=== PATIENT | male | born 1990 | race Caucasian/White ===

== ENCOUNTER 2016-08-16 19:41 | Emergency (ER) | payer SELFPAY ==
[2016-08-16 19:53] VITALS: BP 161/93; BMI 25.8
[2016-08-16] MEDS ORDERED: TORADOL 60 MG VIAL IM ONE (20:40)
[2016-08-16] MEDS ORDERED: TORADOL 60 MG VIAL ONE (20:42)
--- NOTE | 2016-08-16 20:44 | DR.GENAD ---
HPI - PCP Primary Care Physician: nfd - Complaint/Symptoms Chief Complaint Doctors Comments: Patient states he fell off a ladder while he was helping his grand father fix a roof. states he got long term down the ladder and fell landing on the concrete from 3-4 feet with pain right occipital head; right shoulder and neck. States the pain is 7 of 10. He denies LOC, numbness or tingling in hands or feet. States his neck hurts when he moves it and he has right shoulder pain. He has no local doctor. He has been ambulating since the accident and has no problems with his gait. He denies blurred vision, nausea or vomiting. Chief Complaint:: pt says he fell off ladder approx 3 hrs ago-c/o pain to rt shoulder-ambulates without difficulty-no noticeable injury-moves rt shoulder - Nurses notes reviewed Nurses Notes Review: Yes - Source History Provided: Patient - Mode of Arrival Mode of Arrival: Ambulatory - Timing Onset of Chief Complaint: 08/16/16 Came on: Suddenly - Duration Duration: Constant How lon Duration: Hours - Location Location: right shoulder, right occipital scalp - Severity Severity: Moderate - Modifying Factors Worsens:: movement Improves:: nothing PMH - PMH Past Medical History: No Past Surgical History: No - Family History History of Family Medical Conditions: No - Social History Does patient currently use any type of tobacco product: Yes Have you used tobacco products in the last 12 months: Yes Type of Tobacco Use: Cigarettes Does any household member use tobacco: Yes Alcohol Use: None Do you use any recreational Drugs:: No Lives With: Family Lives Where: Home - infectious screening In the last 2 months have you had wt loss of >10#?: NO Have you had fever, night sweats or hemotysis?: No Have you traveled outside the country in the last 6 months?: No Isolation: Standard ROS - Review of Systems Constitutional: No Symptoms Reported. negative: See HPI, Chills, Diaphoresis, Fever, Malaise, Weakness, Irritable, Fatigue, Loss of Appetite, Other Eyes: No Symptoms Reported. negative: See HPI, Eye Pain, Blurred Vision, Tearing, Discharge, Photophobia, Diplopia, Other ENTM: No Symptoms Reported, Nose Discharge (right nostril with purulent nasal secretion), Nose Congestion Respiratoy: No Symptoms Reported. negative: See HPI, Productive Cough, Non- Productive Cough, Moist Cough, Dry Cough, Hacking Cough, Barking Cough, Brassy Cough, Orthopnea, Short of Breath, Stridor, Wheezing, Hemoptysis, Other Cardiovascular: No Symptoms Reported. negative: See HPI, Chest Pain, Edema, Palpitations, Syncope, Cyanosis, Skin Mottling, Other Gastrointestinal/Abdominal: No Symptoms Reported. negative: See HPI, Abdominal Pain, Constipation, Diarrhea, Nausea, Vomiting, Food Intolerance, Other Genitourinary: No Symptoms Reported. negative: See HPI, Discharge, Dysuria, Frequency, Hematuria, Pain, Bleeding, Other Neurological: No Symptoms Reported. negative: See HPI, Anxiety, Depressed, Emotional Problems, Headache, Numbness, Paresthesia, Pre-existing Deficit, Seizure, Tingling, Tremors, Weakness, Dizziness, Problems Walking, Speech Problem, Other Musculoskeletal: No Symptoms Reported, Right, Back (right scapular with abrasion , bruising), Shoulder Integumentary: Bruises (right back with large area erythema, bruising, abrasion , 12 cm) Hematologic/Lymphatic: No Symptoms Reported. negative: See HPI, Anemia, Blood Clots, Easy Bleeding, Easy Bruising, Swollen Glands, Lymphadenopathy, Other Endocrine: No Symptoms Reported. negative: See HPI, Excessive Sweating, Flushing, Intolerance to Cold, Intolerance to Heat, Increased Hunger, Increased Thirst, Increased Urine, Unexplained Weight Gain, Unexplained Weight Loss, Failure to Thrive, Decreased Appetite, Other Psychiatric: No Symptoms Reported. negative: See HPI, Anxiety, Depression, Hallucinations, Excessive crying, Suicidal, Other PE - Vital Signs Vitals: Temperature 98.5 F Pulse Rate 99 Respiratory Rate 16 Blood Pressure 161/93 O2 Sat by Pulse Oximetry 99 - General Limitations: No Limitations General Appearance: Alert, In Distress (moderate) - Head Head Exam: Normal Inspection, Normocephalic. negative: Atraumatic (right occipital with two area erythema, slight swelling 3-4 cm area;no laceration or active bleeding) - Eyes Eye exam: Normal Appearance, PERRL, EOMI. negative: Scleral Icterus, Conjunctival Injection, Nystagmus, Miosis, Mydrasis, Periorbital Swelling, Periorbital Tenderness, Other - ENT ENT Exam: Normal Exam, Normal Oropharynx, Normal External Ear Exam, Mucous Membranes Moist, TM's Normal Bilaterally External Ear Exam: Normal External Inspection TM/Canal Exam: Bilateral Normal Nose Exam: Normal Nose Exam. negative: Sinus Tenderness (right nasal congestion ; purulent nasal discharge), Nasal Deviation Mouth Exam: Normal Inspection. negative: Drooling, Trismus, Lip Swelling, Tongue Elevation, Tongue Swelling, Laceration, Other Throat Exam: Normal Inspection. negative: Tonsillar Erythema, Tonsillomegaly, Tonsillar Exudate, R Peritonsillar Mass, L Peritonsillar Mass, Muffled Voice, Other - Neck Neck Exam: Normal Inspection, Full ROM, Trachea Midline. negative: Tenderness, Meningismus, Lymphadenopathy, Thyromegaly, Other - Chest Chest Inspection: Normal Inspection, Symmetric Chest Wall Rise - Respiratory Respiratory Exam: Normal Lung Sounds Bilat Respiratory Exam: Bilateral Clear to Auscultation - Cardiovascular Cardiovascular Exam: Regular Rate, Normal Rhythm, Normal Heart Sounds. negative : Bradycardia, Tachycardia, Irregular Rhythm, Systolic Murmur, Diastolic Murmur , Rubs, Gallop, Clicks, JVD, +S1, +S2, +S3, +S4, Other - Abdominal Exam Abdominal Exam: Normal Inspection, Normal Bowel Sounds, Soft. negative: Distention, Tenderness, Guarding, Rebound, Rigidity, Dimnished Bowel Sounds, Hyperactive Bowel Sounds, Hypoactive Bowel Sounds, Organomegaly, Trauma, Incision, Ascites, Mass, Bruit, Pulsatile Mass, Hernia, Other Abdominal Tenderness: negative: RUQ, RLQ, LUQ, LLQ, Epigastrium, Suprapubic, Diffuse, Mild, Moderate, Severe, Other - Extremities Extremities Exam: Normal Inspection, Full ROM, Tenderness (right shoulder and scapular area with abrasion; tenderness on palpation AC joint), Normal Capillary Refill. negative: Edema, Joint Swelling, Calf Tenderness, Other - Back Back Exam: Normal Inspection, Full ROM, Tenderness (right scapular with abrasion ), Muscle Spasm - Neurologic Neurological Exam: Alert, Oriented X3, CN II-XII Intact, Reflexes Normal. negative: Normal Gait (gait not tested) - Psychiatric Psychiatric Exam: Normal Affect, Normal Mood. negative: Depressed, Agitated, Anxious, Flat Affect, Manic, Homicidal Ideation, Suicidal Ideation, Other - Skin Skin Exam: Warm, Dry, Intact, Normal Color ROR - Labs Reviewed Laboratory Results Reviewed?: Yes (All x-ray results reviewed and discussed with patient) - XRAY XRAY Interpreted by: Radiologist (CT head: No acute intracranial process identified. Ct cervical spine: Negative) XRAY Findings: CXR: No acut cardiopulmonary disease. Right shoulder: Negative exam - Diagnosis Discharge Problem: Muscle strain Fall from ladder Qualifiers: Encounter type: initial encounter Qualified Code(s): W11.XXXA - Fall on and from ladder, initial encounter Contusion of head Qualifiers: Encounter type: initial encounter Contusion of head detail: scalp Qualified Code(s): S00.03XA - Contusion of scalp, initial encounter Contusion of left shoulder Qualifiers: Encounter type: initial encounter Qualified Code(s): S40.012A - Contusion of left shoulder, initial encounter - Discharge Plan Disposition: HOME, SELF-CARE Condition: Stable Prescriptions: Cyclobenzaprine HCl [FLEXERIL 10 MG *] 10 mg PO BID PRN #14 tab PRN Reason: Ibuprofen [MOTRIN TAB 800 MG *] 800 mg PO BID PRN #40 tab PRN Reason: Pain/Inflammation - Follow ups/Referrals Follow ups/Referrals: NFD,None [Primary Care Provider] - 3 days SUBHASH ESCOBAR [CONSULTING PHYSICIAN] - 3 days - Instructions Instructions: Fall Prevention in the Home, Facial or Scalp Contusion, Easy-to- Read, Contusion, Muscle Strain, [id number]
--- NOTE | 2016-08-16 21:37 | CT ---
History: Fell off a ladder with right shoulder pain Study: Multi planner internship CT cervical spine without contrast Findings: There is normal alignment without disc space narrowing or fracture or osteophyte formation or anomaly. The facet 's and spinous processes are intact. Impression: Negative Reported By:
--- NOTE | 2016-08-16 21:38 | CT ---
HISTORY: Fell off a ladder and headache Study: CT brain without contrast Comparison: None Technique: Multiple axial images of the brain were obtained from the skull base to the vertex without administr ation of IV contrast. Sagittal and coronal reformations were provided. Findings: No acute intraparenchymal hemorrhage or mass can be identified. No extra-axial fluid collections ar e seen. No alteration in the attenuation of the brain parenchyma can be identified to suggest acute or subacute ischemic change. The ventricular system is symmetric and nondilated. The extracranial structures are grossly unremarkable. IMPRESSION: 1. No acute intracranial process can be identified. Reported By:
--- NOTE | 2016-08-16 21:41 | RAD ---
HISTORY: Fall off a ladder with shoulder pain Study: PA upright chest Comparison: None Findings: The trachea is midline. The cardiac silhouette is unremarkable. The lungs are clear without focal infiltrate or effusion. The bony thorax is unremarkable. IMPRESSION: 1. No acute cardiopulmonary disease. Reported By:
--- NOTE | 2016-08-16 21:42 | RAD ---
HISTORY: Right shoulder pain after falling off a ladder Study: Three views right shoulder Comparison: None Findings: The appearance of the clavicle and AC joint are unremarkable. The glenohumeral articulation is norm al in its appearance. No acute cortical disruption or dislocation can be identified. The visualize d portions of the scapula are unremarkable. In addition, the visualized portions of the chest appea r unremarkable. IMPRESSION: 1. Negative exam. Reported By:
== END 2016-08-16 22:13 | disposition home or self-care (01) ==
LOC: ER 19:58
DX: S00.03XA Contusion of scalp, initial encounter (principal); S40.012A Contusion of left shoulder, initial encounter; W11.XXXA Fall on and from ladder, initial encounter; Y92.9 Unspecified place or not applicable
CPT/HCPCS: 70450; 71010; 72125; 73030; 96372; 99283; J1885

== ENCOUNTER 2016-08-25 12:02 | Emergency (ER) | payer SELFPAY ==
[2016-08-25 12:16] VITALS: BP 137/78; BMI 27.3
[2016-08-25] MEDS ORDERED: FUL-GLO STRIP ONE (12:45)
[2016-08-25] MEDS ORDERED: TETRACAINE HCL ONE (12:45)
--- NOTE | 2016-08-25 12:51 | DR.GENAD ---
HPI - PCP Primary Care Physician: nfd - Complaint/Symptoms Chief Complaint Doctors Comments: History as stated. Chief Complaint:: patient stated he was grinding with a small hand grander yesterday and he thinks something is in his right eye. - Source History Provided: Patient - Mode of Arrival Mode of Arrival: Ambulatory - Timing Onset of Chief Complaint: 08/24/16 PMH - PMH Past Medical History: No Past Surgical History: Yes Surgical History: Ortho Surgery - Family History History of Family Medical Conditions: No - Social History Does patient currently use any type of tobacco product: Yes Have you used tobacco products in the last 12 months: Yes Type of Tobacco Use: Cigarettes How many years tobacco product used: 2 Does any household member use tobacco: No Alcohol Use: None Do you use any recreational Drugs:: No Lives With: Family Lives Where: Home - infectious screening In the last 2 months have you had wt loss of >10#?: NO Have you had fever, night sweats or hemotysis?: No Have you traveled outside the country in the last 6 months?: No Isolation: Standard ROS - Review of Systems Eyes: Tearing ENTM: No Symptoms Reported Respiratoy: No Symptoms Reported Cardiovascular: No Symptoms Reported Gastrointestinal/Abdominal: No Symptoms Reported Genitourinary: No Symptoms Reported Neurological: No Symptoms Reported Musculoskeletal: No Symptoms Reported Integumentary: No Symptoms Reported Hematologic/Lymphatic: No Symptoms Reported Endocrine: No Symptoms Reported Psychiatric: No Symptoms Reported All Other Systems: Reviewed and Negative PE - Vital Signs Vitals: Temperature 98.7 F Pulse Rate 80 Respiratory Rate 16 Blood Pressure 137/78 O2 Sat by Pulse Oximetry 100 - General Limitations: No Limitations General Appearance: Alert, In No Apparent Distress - Head Head Exam: Normal Inspection, Atraumatic - Eyes Eye exam: Normal Appearance, PERRL, EOMI, Other (fluorocein drops, corneal abrasion at 5 oclock right eye) - ENT ENT Exam: Normal Exam External Ear Exam: Normal External Inspection TM/Canal Exam: Bilateral Normal Nose Exam: Normal Nose Exam Mouth Exam: Normal Inspection Throat Exam: Normal Inspection - Neck Neck Exam: Normal Inspection - Chest Chest Inspection: Normal Inspection - Respiratory Respiratory Exam: Normal Lung Sounds Bilat Respiratory Exam: Bilateral Clear to Auscultation - Cardiovascular Cardiovascular Exam: Regular Rate - Abdominal Exam Abdominal Exam: Normal Inspection Abdominal Tenderness: negative: RUQ, RLQ, LUQ, LLQ, Epigastrium, Suprapubic, Diffuse, Mild, Moderate, Severe, Other - Extremities Extremities Exam: Normal Inspection - Back Back Exam: Normal Inspection - Neurologic Neurological Exam: Alert, Oriented X3, CN II-XII Intact - Psychiatric Psychiatric Exam: Normal Affect, Normal Mood - Skin Skin Exam: Warm, Dry, Intact ROR - Labs Reviewed Laboratory Results Reviewed?: Yes - Diagnosis Discharge Problem: Cornea abrasion Qualifiers: Encounter type: initial encounter Laterality: right Qualified Code(s): S05.01XA - Injury of conjunctiva and corneal abrasion without foreign body, right eye, initial encounter - Discharge Plan Condition: Stable - Follow ups/Referrals Follow ups/Referrals: NFD,None [Primary Care Provider] - 3 days - Instructions
[2016-08-25] MEDS ORDERED: TETRACAINE HCL AFFEYE ONE (12:53)
[2016-08-25] MEDS ORDERED: FUL-GLO STRIP RIGHTEYE ONE (12:53)
== END 2016-08-25 13:07 | disposition home or self-care (01) ==
LOC: ER 12:21
DX: S05.01XA Injury of conjunctiva and corneal abrasion without foreign body, right eye, initial encounter (principal); Y33.XXXA Other specified events, undetermined intent, initial encounter; Y92.9 Unspecified place or not applicable
CPT/HCPCS: 99282

== ENCOUNTER 2016-10-10 20:26 | Emergency (ER) | payer SELFPAY ==
[2016-10-10 20:33] VITALS: BP 144/80; BMI 26.6
--- NOTE | 2016-10-10 22:16 | DR.GENAD ---
HPI - PCP Primary Care Physician: nfraad - HPI Comment HPI Comment: Pt presented to ED tonight c/o nausea and vomiting upon awakening earlier this morning. He has since eaten a meal from [facility] w/o difficulty. He wishes to be checked out. - Complaint/Symptoms Chief Complaint Doctors Comments: nausea and vomiting this morning Chief Complaint:: nausea/vomiting - Nurses notes reviewed Nurses Notes Review: Yes - Source History Provided: Patient - Mode of Arrival Mode of Arrival: Ambulatory - Timing Onset of Chief Complaint: 10/10/16 Came on: Suddenly, On Awakening (one episode) - Severity Severity: Mild - Modifying Factors Worsens:: none Improves:: time PMH - PMH Past Medical History: No Past Surgical History: Yes Surgical History: Ortho Surgery Past Surgical History Comment: pins in left leg - Family History History of Family Medical Conditions: Yes Family Medical History: Diabetes Mellitus, [place], Coronary Artery Disease, Heart Failure, Hypertension - Social History Does patient currently use any type of tobacco product: Yes Have you used tobacco products in the last 12 months: Yes Type of Tobacco Use: Cigarettes Does any household member use tobacco: No Alcohol Use: None Do you use any recreational Drugs:: No Lives With: Family Lives Where: Home - infectious screening In the last 2 months have you had wt loss of >10#?: NO Have you had fever, night sweats or hemotysis?: No Have you traveled outside the country in the last 6 months?: No Isolation: Standard ROS - Review of Systems Constitutional: No Symptoms Reported Respiratoy: No Symptoms Reported Cardiovascular: No Symptoms Reported Gastrointestinal/Abdominal: Nausea, Vomiting Genitourinary: No Symptoms Reported Neurological: No Symptoms Reported Musculoskeletal: No Symptoms Reported All Other Systems: Reviewed and Negative PE - Vital Signs Vitals: Temperature 98.9 F Pulse Rate 102 Respiratory Rate 16 Blood Pressure 144/80 O2 Sat by Pulse Oximetry 96 - General Limitations: No Limitations General Appearance: Alert, In No Apparent Distress - Head Head Exam: Normal Inspection - Neck Neck Exam: Normal Inspection, Full ROM - Chest Chest Inspection: Normal Inspection - Respiratory Respiratory Exam: Normal Lung Sounds Bilat - Cardiovascular Cardiovascular Exam: Regular Rate, Normal Rhythm, Normal Heart Sounds - Abdominal Exam Abdominal Exam: Normal Inspection, Normal Bowel Sounds, Soft, Hyperactive Bowel Sounds. negative: Tenderness - Extremities Extremities Exam: Normal Inspection - Diagnosis Discharge Problem: Gastroenteritis - Discharge Plan Disposition: HOME, SELF-CARE Condition: Stable - Follow ups/Referrals Follow ups/Referrals: NFD,None [Primary Care Provider] - 3 days - Instructions Instructions: Nausea, Adult
== END 2016-10-10 22:23 | disposition home or self-care (01) ==
LOC: ER 20:35
DX: K52.89 Other specified noninfective gastroenteritis and colitis (principal)
CPT/HCPCS: 99281; 99282

== ENCOUNTER 2016-10-25 11:21 | Emergency (ER) | payer SELFPAY ==
[2016-10-25 11:26] VITALS: BP 142/91; BMI 26.6
--- NOTE | 2016-10-25 11:45 | DR.GENAD ---
HPI - PCP Primary Care Physician: nfd - Complaint/Symptoms Chief Complaint Doctors Comments: Patient denies fever vomiting or diarrhea Chief Complaint:: patient stated for the past 4 days he has had a real bad cough , running nose and he hasnt been feeling good. his boss man told him to come to the er. - Source History Provided: Patient - Mode of Arrival Mode of Arrival: Ambulatory - Timing Onset of Chief Complaint: 10/22/16 PMH - PMH Past Medical History: No Past Surgical History: Yes Surgical History: Ortho Surgery - Family History History of Family Medical Conditions: Yes Family Medical History: Diabetes Mellitus, [place], Coronary Artery Disease, Heart Failure, Hypertension - Social History Does patient currently use any type of tobacco product: Yes Have you used tobacco products in the last 12 months: Yes Type of Tobacco Use: Cigarettes Does any household member use tobacco: No Alcohol Use: None Do you use any recreational Drugs:: No Lives With: Family Lives Where: Home - infectious screening In the last 2 months have you had wt loss of >10#?: NO Have you had fever, night sweats or hemotysis?: No Have you traveled outside the country in the last 6 months?: No Isolation: Standard ROS - Review of Systems Constitutional: No Symptoms Reported Eyes: No Symptoms Reported ENTM: No Symptoms Reported Respiratoy: Dry Cough Cardiovascular: No Symptoms Reported Gastrointestinal/Abdominal: No Symptoms Reported Genitourinary: No Symptoms Reported Neurological: No Symptoms Reported Musculoskeletal: No Symptoms Reported Integumentary: No Symptoms Reported PE - Vital Signs Vitals: Temperature 98.6 F Pulse Rate 91 Respiratory Rate 16 Blood Pressure 142/91 O2 Sat by Pulse Oximetry 100 - General Limitations: No Limitations General Appearance: Alert, In No Apparent Distress - Head Head Exam: Normal Inspection, Atraumatic - Eyes Eye exam: Normal Appearance, PERRL, EOMI - ENT ENT Exam: TM's Normal Bilaterally External Ear Exam: Normal External Inspection TM/Canal Exam: Bilateral Normal Nose Exam: Other (congestion) Mouth Exam: Normal Inspection Throat Exam: Normal Inspection - Neck Neck Exam: Normal Inspection - Chest Chest Inspection: Normal Inspection - Respiratory Respiratory Exam: Normal Lung Sounds Bilat Respiratory Exam: Bilateral Clear to Auscultation - Cardiovascular Cardiovascular Exam: Regular Rate, Normal Rhythm - Abdominal Exam Abdominal Exam: Normal Inspection, Normal Bowel Sounds Abdominal Tenderness: negative: RUQ, RLQ, LUQ, LLQ, Epigastrium, Suprapubic, Diffuse, Mild, Moderate, Severe, Other - Extremities Extremities Exam: Normal Inspection - Back Back Exam: Normal Inspection - Neurologic Neurological Exam: Alert, Oriented X3, CN II-XII Intact - Psychiatric Psychiatric Exam: Normal Affect - Skin Skin Exam: Warm, Dry, Intact - Diagnosis Discharge Problem: Upper respiratory infection Qualifiers: URI type: unspecified viral URI Qualified Code(s): J06.9 - Acute upper respiratory infection, unspecified; B97.89 - Other viral agents as the cause of diseases classified elsewhere - Discharge Plan Condition: Stable - Follow ups/Referrals Follow ups/Referrals: NFD,None [Primary Care Provider] - 3 days - Instructions
== END 2016-10-25 11:56 | disposition home or self-care (01) ==
LOC: ER 11:35
DX: J06.9 Acute upper respiratory infection, unspecified (principal); B97.89 Other viral agents as the cause of diseases classified elsewhere
CPT/HCPCS: 99281; 99282

== ENCOUNTER 2016-12-13 23:38 | Emergency (ER) | payer SELFPAY ==
[2016-12-13 23:42] VITALS: BP 148/96; BMI 26.6
[2016-12-14] MEDS ORDERED: FUL-GLO STRIP RIGHTEYE ONE (00:12)
[2016-12-14] MEDS ORDERED: TETRACAINE HCL AFFEYE ONE (00:12)
[2016-12-14] MEDS ORDERED: TETRACAINE HCL ONE (00:13)
[2016-12-14] MEDS ORDERED: FUL-GLO STRIP ONE ×2 (00:13→00:15)
[2016-12-14] MEDS ORDERED: NEOSPORIN OINT ONE (00:31)
--- NOTE | 2016-12-14 00:33 | DR.GENAD ---
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 States he has been having irritation tonight and decided to come to have his eyes checked before it got worst. states the pain is 7 or 10 presently. States he does not have a local doctor. He denies blurred vision, nausea or vomiting. States he was using one of his father's old helmets and it leaked and burnt his eyes. He denies cold, cough, fever, chills or problems with his sinus. Chief Complaint:: "I BURNT MY EYES WHILE WELDING TODAY. I HAD PROTECTIVE GEAR ON / EYE SHIELD." Self Treatment fo Chief Complaint: LUBRICATION EYE DROPS - Nurses notes reviewed Nurses Notes Review: Yes - Source History Provided: Patient - Mode of Arrival Mode of Arrival: Ambulatory - Timing Onset of Chief Complaint: 12/13/16 Came on: Gradually - Duration Duration: Constant How lon Duration: Hours - Location Location: bilateral eyes - Severity Severity: Mild - Modifying Factors Worsens:: light Improves:: nothing PMH - PMH Past Medical History: No Past Surgical History: Yes Surgical History: Ortho Surgery - Family History History of Family Medical Conditions: No Family Medical History: Diabetes Mellitus, [place], Coronary Artery Disease, Heart Failure, Hypertension - Social History Type of Tobacco Use: Cigarettes Alcohol Use: None Do you use any recreational Drugs:: No Lives With: Family Lives Where: Home - infectious screening Have you traveled outside the country in the last 6 months?: No Isolation: Standard ROS - Review of Systems Constitutional: No Symptoms Reported. negative: See HPI, Chills, Diaphoresis, Fever, Malaise, Weakness, Irritable, Fatigue, Loss of Appetite, Other Eyes: No Symptoms Reported. negative: See HPI, Eye Pain, Blurred Vision, Tearing, Discharge, Photophobia, Diplopia, Other ENTM: No Symptoms Reported, Nose Congestion. negative: See HPI, Ear Pain, Ear Discharge, Pulling on Ears, Hearing Loss, Nose Pain, Nose Discharge, Epistaxis, Mouth Pain, Mouth Swelling, Loose Teeth, Drooling, Throat Pain, Throat Swelling , Ear Foreign Body Respiratoy: No Symptoms Reported. negative: See HPI, Productive Cough, Non- Productive Cough, Moist Cough, Dry Cough, Hacking Cough, Barking Cough, Brassy Cough, Orthopnea, Short of Breath, Stridor, Wheezing, Hemoptysis, Other Cardiovascular: No Symptoms Reported. negative: See HPI, Chest Pain, Edema, Palpitations, Syncope, Cyanosis, Skin Mottling, Other Gastrointestinal/Abdominal: No Symptoms Reported. negative: See HPI, Abdominal Pain, Constipation, Diarrhea, Nausea, Vomiting, Food Intolerance, Other Genitourinary: No Symptoms Reported. negative: See HPI, Discharge, Dysuria, Frequency, Hematuria, Pain, Bleeding, Other Neurological: No Symptoms Reported. negative: See HPI, Anxiety, Depressed, Emotional Problems, Headache, Numbness, Paresthesia, Pre-existing Deficit, Seizure, Tingling, Tremors, Weakness, Dizziness, Problems Walking, Speech Problem, Other Musculoskeletal: No Symptoms Reported. negative: See HPI, Back Pain, Gout, Joint Pain, Joint Swelling, Muscle Pain, Muscle Stiffness, Neck Pain, Right, Left, Neck, Chest wall, Rib(s), Back, Shoulder, Arm, Elbow, Forearm, Wrist, Hand , Pelvis, Hip, Leg, Knee, Ankle, Foot, Other Integumentary: No Symptoms Reported. negative: See HPI, Change in Color, Change in Hair/Nails, Dryness, Lesions, Lumps, Rash, Itching, Wound, Bruises, Juandice, Other Hematologic/Lymphatic: No Symptoms Reported Endocrine: No Symptoms Reported Psychiatric: No Symptoms Reported PE - Vital Signs Vitals: Temperature 98.1 F Pulse Rate 72 Respiratory Rate 16 Blood Pressure 148/96 O2 Sat by Pulse Oximetry 99 - General Limitations: No Limitations General Appearance: Alert, In Distress (mild) - Head Head Exam: Normal Inspection, Atraumatic, Normocephalic - Eyes Eye exam: Normal Appearance, PERRL, EOMI, Conjunctival Injection. negative: Scleral Icterus, Nystagmus, Miosis, Mydrasis, Periorbital Swelling, Periorbital Tenderness, Other - ENT ENT Exam: Normal Exam, Normal Oropharynx, Normal External Ear Exam, Mucous Membranes Moist, TM's Normal Bilaterally TM/Canal Exam: Bilateral Normal Nose Exam: Normal Nose Exam Mouth Exam: Normal Inspection Throat Exam: Normal Inspection - Neck Neck Exam: Normal Inspection, Full ROM, Trachea Midline - Chest Chest Inspection: Normal Inspection, Symmetric Chest Wall Rise - Respiratory Respiratory Exam: Normal Lung Sounds Bilat Respiratory Exam: Bilateral Clear to Auscultation - Cardiovascular Cardiovascular Exam: Regular Rate, Normal Rhythm, Normal Heart Sounds. negative : Bradycardia, Tachycardia, Irregular Rhythm, Systolic Murmur, Diastolic Murmur , Rubs, Gallop, Clicks, JVD, +S1, +S2, +S3, +S4, Other - Abdominal Exam Abdominal Exam: Normal Inspection, Normal Bowel Sounds, Soft. negative: Distention, Tenderness, Guarding, Rebound, Rigidity, Dimnished Bowel Sounds, Hyperactive Bowel Sounds, Hypoactive Bowel Sounds, Organomegaly, Trauma, Incision, Ascites, Mass, Bruit, Pulsatile Mass, Hernia, Other Abdominal Tenderness: negative: RUQ, RLQ, LUQ, LLQ, Epigastrium, Suprapubic, Diffuse, Mild, Moderate, Severe, Other - Extremities Extremities Exam: Normal Inspection, Full ROM, Normal Capillary Refill. negative: Tenderness, Edema, Joint Swelling, Calf Tenderness, Other - Back Back Exam: Normal Inspection, Full ROM. negative: Tenderness, (R) CVA Tenderness, (L) CVA Tenderness, Muscle Spasm, Paraspinal Tenderness, Vertebral Tenderness, Rashes, (R) Sciatic Notch Tenderness, (L) Sciatic Notch Tendern, (R ) Straight Leg Raise, (L) Straight Leg Raise, Other - Neurologic Neurological Exam: Alert, Oriented X3, CN II-XII Intact, Normal Gait, Reflexes Normal - Psychiatric Psychiatric Exam: Normal Affect, Normal Mood - Skin Skin Exam: Warm, Dry, Intact, Normal Color Procedures - Eye Procedure Alcaine Drops Administered: Yes Eye Irrigated w/ Saline (ccs): 20 Cyclogel 2 Drops Administered: both eyes Antibiotic Oinment/Drps Admin: both eyes - Diagnosis Discharge Problem: Flash burn of both eyes, Eyelid pain of both eyes - Discharge Plan Disposition: 01 HOME, SELF-CARE Condition: Stable Prescriptions: Ibuprofen [MOTRIN TAB 800 MG *] 800 mg PO Q8H PRN #30 tab PRN Reason: Pain/Inflammation Neomycin/Polymyxn B/Gramicidin [Neosporin Eye Drops] 1 drop OP Q4-6H PRN #10 [id number] PRN Reason: - Follow ups/Referrals Follow ups/Referrals: NFD,None [Primary Care Provider] - 3 days - Instructions Instructions: Corneal Abrasion, Gentamicin eye ointment
[2016-12-14] MEDS ORDERED: GENTAMICIN SULF (OPHTH) ONE (00:34)
== END 2016-12-14 00:52 | disposition home or self-care (01) ==
LOC: ER 23:38
DX: T26.01XA Burn of right eyelid and periocular area, initial encounter (principal); T26.02XA Burn of left eyelid and periocular area, initial encounter
CPT/HCPCS: 99282

== ENCOUNTER 2017-01-04 02:14 | Emergency (ER) | payer SELFPAY ==
[2017-01-04 02:27] VITALS: BMI 25.8
[2017-01-04] MEDS ORDERED: TETRACAINE HCL AFFEYE ONE (03:10)
[2017-01-04] MEDS ORDERED: FUL-GLO STRIP ONE ×2 (03:20→03:22)
--- NOTE | 2017-01-04 03:28 | DR.GENAD ---
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 Self Treatment fo Chief Complaint: eye drops - Source History Provided: Patient - Mode of Arrival Mode of Arrival: Ambulatory - Timing Onset of Chief Complaint: 01/03/17 PMH - PMH Past Medical History: No Past Surgical History: Yes Surgical History: Ortho Surgery - Family History History of Family Medical Conditions: Yes Family Medical History: Diabetes Mellitus, Heart Failure, Hypertension - Social History Does patient currently use any type of tobacco product: Yes Have you used tobacco products in the last 12 months: Yes Type of Tobacco Use: Cigarettes How many years tobacco product used: 4 Does any household member use tobacco: No Alcohol Use: None Do you use any recreational Drugs:: No Lives With: Mom Lives Where: Home - infectious screening In the last 2 months have you had wt loss of >10#?: NO Have you had fever, night sweats or hemotysis?: No Have you traveled outside the country in the last 6 months?: No Isolation: Standard ROS - Review of Systems Eyes: No Symptoms Reported, Eye Pain ENTM: Hearing Loss Cardiovascular: No Symptoms Reported Gastrointestinal/Abdominal: No Symptoms Reported Genitourinary: No Symptoms Reported Neurological: No Symptoms Reported Musculoskeletal: No Symptoms Reported Integumentary: No Symptoms Reported Hematologic/Lymphatic: No Symptoms Reported Endocrine: No Symptoms Reported Psychiatric: No Symptoms Reported All Other Systems: Reviewed and Negative PE - Vital Signs Vitals: Temperature 97.4 F Pulse Rate 66 Respiratory Rate 20 Blood Pressure 142/89 O2 Sat by Pulse Oximetry 99 - General General Appearance: Alert, In No Apparent Distress - Head Head Exam: Normal Inspection, Atraumatic - Eyes Eye exam: PERRL, Other (flash burn left inferior pupil) - ENT ENT Exam: Normal Exam External Ear Exam: Normal External Inspection TM/Canal Exam: Bilateral Normal Nose Exam: Normal Nose Exam Mouth Exam: Normal Inspection Throat Exam: Normal Inspection - Neck Neck Exam: Normal Inspection, Full ROM - Chest Chest Inspection: Normal Inspection, Symmetric Chest Wall Rise - Respiratory Respiratory Exam: Normal Lung Sounds Bilat Respiratory Exam: Bilateral Clear to Auscultation - Cardiovascular Cardiovascular Exam: Regular Rate, Normal Rhythm - Abdominal Exam Abdominal Exam: Normal Inspection Abdominal Tenderness: negative: RUQ, RLQ, LUQ, LLQ, Epigastrium, Suprapubic, Diffuse, Mild, Moderate, Severe, Other - Extremities Extremities Exam: Normal Inspection, Full ROM - Back Back Exam: Normal Inspection, Full ROM - Neurologic Neurological Exam: Alert, Oriented X3, CN II-XII Intact - Psychiatric Psychiatric Exam: Normal Affect, Normal Mood - Skin Skin Exam: Warm, Dry, Intact Procedures - Procedure Comments Procedures: tetracaine appliey eye visualized - Diagnosis Discharge Problem: Flash burn of right eye - Discharge Plan Condition: Stable - Follow ups/Referrals Follow ups/Referrals: NFD,None [Primary Care Provider] - 3 days - Instructions
[2017-01-04] MEDS ORDERED: GENTAMICIN SULF (OPHTH) ONE (03:31)
[2017-01-04] MEDS ORDERED: MORPHINE SULFATE INJ 4 MG ONE (03:45)
[2017-01-04] MEDS ORDERED: GENTAK OPHTH OINT EACHEYE SCH (04:00)
[2017-01-04 04:51] VITALS: BP 138/75
[2017-01-04] MEDS ORDERED: FUL-GLO STRIP EACHEYE ONE (04:58)
== END 2017-01-04 04:20 | disposition home or self-care (01) ==
LOC: ER 02:14
DX: T26.11XA Burn of cornea and conjunctival sac, right eye, initial encounter (principal); Y92.69 Other specified industrial and construction area as the place of occurrence of the external cause
CPT/HCPCS: 99282; J2270

== ENCOUNTER 2017-04-21 14:32 | Emergency (ER) | payer SELFPAY ==
[2017-04-21 14:38] VITALS: BP 139/77; BMI 27.6
--- NOTE | 2017-04-21 15:03 | DR.GENAD ---
HPI - PCP Primary Care Physician: NFD - HPI Comment HPI Comment: LESION EXTENDING AND MORE PAINFUL. NO FEVER. MILD DRAINAGE TODAY. - Complaint/Symptoms Chief Complaint Doctors Comments: PUSTULAR LESION LOWER ABDOMINAL WALL TIMES ONE DAY. Chief Complaint:: SPOT ON BOTTOM OF ABDOMEN THAT IS RED AND IRRITATED - Nurses notes reviewed Nurses Notes Review: Yes - Source History Provided: Patient - Mode of Arrival Mode of Arrival: Ambulatory - Timing Onset of Chief Complaint: 04/20/17 Came on: Suddenly - Duration Duration: Constant Duration: Days - Severity Severity: Moderate PMH - PMH Past Medical History: No Past Surgical History: Yes Surgical History: Ortho Surgery - Family History History of Family Medical Conditions: Yes Family Medical History: Diabetes Mellitus, Heart Failure, Hypertension - Social History Does patient currently use any type of tobacco product: Yes Have you used tobacco products in the last 12 months: Yes Type of Tobacco Use: Cigarettes Does any household member use tobacco: No Alcohol Use: None Do you use any recreational Drugs:: No Lives With: Spouse Lives Where: Home - infectious screening In the last 2 months have you had wt loss of >10#?: NO Have you had fever, night sweats or hemotysis?: No Have you traveled outside the country in the last 6 months?: No Isolation: Standard ROS - Review of Systems Constitutional: No Symptoms Reported Eyes: No Symptoms Reported ENTM: No Symptoms Reported Respiratoy: No Symptoms Reported Cardiovascular: No Symptoms Reported Gastrointestinal/Abdominal: No Symptoms Reported Genitourinary: No Symptoms Reported Neurological: No Symptoms Reported Musculoskeletal: No Symptoms Reported Integumentary: Change in Color, Lesions (RED WITH PUSTULE IN CENTER.) Hematologic/Lymphatic: No Symptoms Reported Endocrine: No Symptoms Reported All Other Systems: Reviewed and Negative PE - Vital Signs Vitals: Temperature 97.6 F Pulse Rate 87 Respiratory Rate 20 Blood Pressure [Left Arm] 138/75 Blood Pressure 139/77 O2 Sat by Pulse Oximetry 97 - General Limitations: No Limitations General Appearance: Alert - Head Head Exam: Normal Inspection - Eyes Eye exam: Normal Appearance - ENT ENT Exam: Normal External Ear Exam External Ear Exam: Normal External Inspection TM/Canal Exam: Bilateral Normal Nose Exam: Normal Nose Exam Mouth Exam: Normal Inspection Throat Exam: Normal Inspection - Neck Neck Exam: Trachea Midline - Chest Chest Inspection: Symmetric Chest Wall Rise - Respiratory Respiratory Exam: Normal Lung Sounds Bilat Respiratory Exam: Bilateral Clear to Auscultation - Cardiovascular Cardiovascular Exam: Regular Rate, Normal Rhythm, Normal Heart Sounds - Abdominal Exam Abdominal Exam: Normal Inspection - Extremities Extremities Exam: Normal Inspection - Back Back Exam: Normal Inspection - Neurologic Neurological Exam: Alert, Oriented X3 - Psychiatric Psychiatric Exam: Normal Affect, Normal Mood - Skin Skin Exam: Erythema (REDNESS LOWER ABD NOT DRAINING.) MDM - Additional Information Additional Information Obtained From: Family - Differential Diagnosis Differential Diagnosis: CELLULITIS LOWER ABDOMINAL WALL. Course - Treatment Treatment: SEE ORDERS. - Education/Counseling Education/Counseling: Patient, Family, Education Educated On: Diagnosis, Needs for Follow Up - Diagnosis Discharge Problem: Cellulitis, abdominal wall - Discharge Plan Disposition: HOME, SELF-CARE Condition: Stable Prescriptions: Ibuprofen [MOTRIN TAB 800 MG *] 800 mg PO Q8H PRN #20 tab PRN Reason: Pain/Inflammation Mupirocin Calcium Cream [BACTROBAN CREAM 2%] 1 applic EXT BID #30 gm Sulfamethoxazole-Trimethoprim [BACTRIM DS TAB 800/160 MG *] 1 tab PO BID #20 tab - Follow ups/Referrals Follow ups/Referrals: NFD,None [Primary Care Provider] - 3 days - Instructions Instructions: Cellulitis, Adult, [id number] Additional Instructions: RETURN TO ED IF WORSE.
== END 2017-04-21 15:27 | disposition home or self-care (01) ==
LOC: ER 14:42
DX: L03.311 Cellulitis of abdominal wall (principal)
CPT/HCPCS: 99281; 99282

== ENCOUNTER 2017-04-24 23:49 | Emergency (ER) | payer SELFPAY ==
[2017-04-25 00:01] VITALS: BMI 27.6
--- NOTE | 2017-04-25 01:33 | DR.RASHA ---
HPI - Time Seen Time seen: 01:30 - Primary Care Physician Primary Care Physician: Tha - Complaints Chief Complaint Doctors Comments: Patient was treated for a cellulitis of the suprapubic area 2-3 days ago. He reports that the area is tender and not getting better. Chief Complaint:: C/O staph - Source History Provided: Patient - Mode of Arrival Mode of Arrival: Ambulatory - Timing Onset of Chief Complaint: 04/18/17 PMH - PMH Past Medical History: No Past Surgical History: No Surgical History: Ortho Surgery - Family History History of Family Medical Conditions: Yes Family Medical History: Diabetes Mellitus, Heart Failure, Hypertension - Social History Does patient currently use any type of tobacco product: Yes Have you used tobacco products in the last 12 months: Yes Type of Tobacco Use: Cigarettes Does any household member use tobacco: No Alcohol Use: None Do you use any recreational Drugs:: No Lives With: Family Lives Where: Home - infectious screening In the last 2 months have you had wt loss of >10#?: NO Have you had fever, night sweats or hemotysis?: No Have you traveled outside the country in the last 6 months?: No ROS - Review of Systems Eyes: No Symptoms Reported ENTM: No Symptoms Reported Respiratoy: No Symptoms Reported Cardiovascular: No Symptoms Reported Gastrointestinal/Abdominal: No Symptoms Reported Genitourinary: No Symptoms Reported Neurological: No Symptoms Reported Musculoskeletal: No Symptoms Reported Integumentary: Lesions (suprapubic area ) Hematologic/Lymphatic: No Symptoms Reported Endocrine: No Symptoms Reported Psychiatric: No Symptoms Reported All Other Systems: Reviewed and Negative PE - Vital Signs Vitals: Temperature 97.6 F Pulse Rate 88 Respiratory Rate 16 Blood Pressure [Left Arm] 138/75 Blood Pressure 137/68 O2 Sat by Pulse Oximetry 95 - General General Appearance: Alert, In No Apparent Distress - Head Head Exam: Normal Inspection, Atraumatic - Eyes Eye exam: Normal Appearance, PERRL, EOMI - ENT ENT Exam: Normal Exam External Ear Exam: Normal External Inspection TM/Canal Exam: Bilateral Normal Nose Exam: Normal Nose Exam, Sinus Tenderness Nasal Speculum Exam: Bilateral Normal Mouth Exam: Normal Inspection Teeth Exam: Normal Inspection Throat Exam: Normal Inspection - Neck Neck Exam: Normal Inspection, Full ROM - Chest Chest Inspection: Normal Inspection, Symmetric Chest Wall Rise - Respiratory Respiratory Exam: Normal Lung Sounds Bilat Respiratory Exam: Bilateral Clear to Auscultation - Cardiovascular Cardiovascular Exam: Regular Rate, Normal Rhythm - Abdominal Exam Abdominal Exam: Normal Inspection, Normal Bowel Sounds Abdominal Tenderness: negative: RUQ, RLQ, LUQ, LLQ, Epigastrium, Suprapubic, Diffuse, Mild, Moderate, Severe, Other - Extremities Extremities Exam: Normal Inspection, Full ROM - Back Back Exam: Normal Inspection, Full ROM - Neurologic Neurological Exam: Alert, Oriented X3, CN II-XII Intact - Psychiatric Psychiatric Exam: Normal Affect, Normal Mood - Skin Skin Exam: Warm, Dry, Erythema Type of Lesion: Rash (Supra pubic non fluctuant erythematous mass c/w cellulitis ) - Diagnosis Discharge Problem: Cellulitis and abscess of trunk - Discharge Plan Condition: Stable - Follow ups/Referrals Follow ups/Referrals: NFD,None [Primary Care Provider] - 3 days - Instructions
[2017-04-25 01:46] VITALS: BP 131/72
== END 2017-04-25 01:42 | disposition home or self-care (01) ==
LOC: ER 04-25 00:07
DX: L03.319 Cellulitis of trunk, unspecified (principal); L02.219 Cutaneous abscess of trunk, unspecified
CPT/HCPCS: 99281; 99282

== ENCOUNTER 2017-07-17 20:13 | Emergency (ER) | payer SELFPAY ==
[2017-07-17 20:29] VITALS: BP 134/73; BMI 29.0
--- NOTE | 2017-07-17 20:45 | DR.GENAD ---
HPI - PCP Primary Care Physician: No physician - HPI Comment HPI Comment: RUNNING FEVER AND MUSCLES HURTING. BILATERAL EYE PAIN WELL. - Complaint/Symptoms Chief Complaint Doctors Comments: COUGH, COLD CONGESTION ANDVOMITING TODAY. DIARRHEA YESTERDAY. NECK AND SORE THROAT THAT IS WORSE TODAY. Chief Complaint:: Started throwing up this am. States he has thrown up twice today. States he has neck pain that has been going on for 2 days and his head started hurting this am. Pt also states he is having bilateral eye pain. Denies vision loss and blurry vision. Pt states he has a stuffy nose that started today. Self Treatment fo Chief Complaint: Goody powder but no relief - Nurses notes reviewed Nurses Notes Review: Yes - Source History Provided: Patient - Mode of Arrival Mode of Arrival: Ambulatory - Timing Onset of Chief Complaint: 07/17/17 Came on: Suddenly - Duration Duration: Constant Duration: Hours - Severity Severity: Moderate PMH - PMH Past Medical History: No Past Surgical History: Yes Surgical History: Ortho Surgery - Family History History of Family Medical Conditions: Yes Family Medical History: Diabetes Mellitus, Coronary Artery Disease, Heart Failure, Hypertension Family Medical History Comment: Stroke, Seizures - Social History Does patient currently use any type of tobacco product: No Have you used tobacco products in the last 12 months: Yes Type of Tobacco Use: Cigarettes How many years tobacco product used: 2 Does any household member use tobacco: No Alcohol Use: None Do you use any recreational Drugs:: No Lives With: Spouse Lives Where: Home - infectious screening In the last 2 months have you had wt loss of >10#?: NO Have you had fever, night sweats or hemotysis?: No Have you traveled outside the country in the last 6 months?: No Isolation: Standard ROS - Review of Systems Constitutional: No Symptoms Reported Eyes: Eye Pain ENTM: No Symptoms Reported, Nose Congestion Respiratoy: No Symptoms Reported Cardiovascular: No Symptoms Reported Gastrointestinal/Abdominal: No Symptoms Reported Genitourinary: No Symptoms Reported Neurological: Headache Musculoskeletal: Neck Pain Integumentary: No Symptoms Reported Hematologic/Lymphatic: No Symptoms Reported Endocrine: No Symptoms Reported All Other Systems: Reviewed and Negative PE - Vital Signs Vitals: Temperature 98.8 F Pulse Rate 82 Respiratory Rate 20 Blood Pressure [Left Arm] 131/72 Blood Pressure 134/73 O2 Sat by Pulse Oximetry 99 - General Limitations: No Limitations General Appearance: Alert - Head Head Exam: Normal Inspection - Eyes Eye exam: Normal Appearance - ENT ENT Exam: Normal External Ear Exam External Ear Exam: Normal External Inspection TM/Canal Exam: Bilateral Normal Nose Exam: Normal Nose Exam Mouth Exam: Normal Inspection Throat Exam: Normal Inspection - Neck Neck Exam: Normal Inspection - Chest Chest Inspection: Symmetric Chest Wall Rise - Respiratory Respiratory Exam: Normal Lung Sounds Bilat Respiratory Exam: Bilateral Clear to Auscultation - Cardiovascular Cardiovascular Exam: Regular Rate, Normal Rhythm, Normal Heart Sounds - Abdominal Exam Abdominal Exam: Normal Bowel Sounds, Soft. negative: Tenderness - Extremities Extremities Exam: Normal Inspection - Back Back Exam: Normal Inspection - Neurologic Neurological Exam: Alert, Oriented X3 - Psychiatric Psychiatric Exam: Normal Affect, Normal Mood - Skin Skin Exam: Normal Color MDM - Additional Information Additional Information Obtained From: Family - Differential Diagnosis Differential Diagnosis: STREP THROAT, FLU, SINUSITIS, OTITIS MEDIA, BRONCHITIS, PNEUMONIA. Course - Treatment Treatment: SEE ORDERS. - Education/Counseling Education/Counseling: Patient, Education Educated On: Treatment, Diagnosis, Needs for Follow Up ROR - Labs Reviewed Laboratory Results Reviewed?: Yes Result Diagrams: 07/17/17 21:08 07/17/17 21:08 Laboratory: WBC 14.7 X10^3/uL (3.6-10.0) H 07/17/17 21:08 RBC 4.77 X10^6/uL (4.7-6.0) 07/17/17 21:08 Hgb 14.2 g/dL (13.5-18.0) 07/17/17 21:08 Hct 42.1 % (42.0-54.0) 07/17/17 21:08 MCV 88.3 fL (80.0-100.0) 07/17/17 21:08 MCH 29.8 pg (27.0-34.0) 07/17/17 21:08 MCHC 33.8 g/dL (33.0-35.0) 07/17/17 21:08 RDW 13.8 % (11.6-16.5) 07/17/17 21:08 Plt Count 193 X10^3/uL (150.0-450.0) 07/17/17 21:08 MPV 8.3 fL (7.4-11.0) 07/17/17 21:08 Neut % 81.8 % (42.0-75.0) H 07/17/17 21:08 Lymph % 8.8 % (21.0-51.0) L 07/17/17 21:08 Arroyo % 6.0 % (0.0-13.0) 07/17/17 21:08 Eos % 3.1 % (0.9-2.9) H 07/17/17 21:08 Baso % 0.3 % (0.2-1.0) 07/17/17 21:08 Neut # 12.0 x10^3/uL (2.2-4.8) H 07/17/17 21:08 Lymph # 1.3 X10^3/uL (1.3-2.9) 07/17/17 21:08 Arroyo # 0.9 x10^3/uL (0.3-0.8) H 07/17/17 21:08 Eos # 0.5 x10^3/uL (0.0-0.2) H 07/17/17 21:08 Baso # 0.1 X10^3/uL (0.0-0.1) 07/17/17 21:08 Absolute Nucleated RBC 0.0 /100WBC 07/17/17 21:08 Sodium 140 mmol/L (136-145) 07/17/17 21:08 Corrected Sodium TNP 07/17/17 21:08 Potassium 3.9 mmol/L (3.5-5.1) 07/17/17 21:08 Chloride 103 mmol/L (98-107) 07/17/17 21:08 Carbon Dioxide 30.0 mmol/L (21-32) 07/17/17 21:08 BUN 16 mg/dL (7-18) 07/17/17 21:08 Creatinine 1.18 mg/dL (0.70-1.30) 07/17/17 21:08 Est GFR (MDRD) Af Amer > 60 (>60) 07/17/17 21:08 Est GFR (MDRD) Non-Af > 60 (>60) 07/17/17 21:08 Glucose 80 mg/dL (65-99) 07/17/17 21:08 Calcium 8.5 mg/dL (8.5-10.1) 07/17/17 21:08 Corrected Calcium TNP 07/17/17 21:08 Total Bilirubin 0.40 mg/dL (0.2-1.0) 07/17/17 21:08 AST 18 Units/L (15-37) 07/17/17 21:08 ALT 29 Units/L (12-78) 07/17/17 21:08 Alkaline Phosphatase 74 Units/L (46-116) 07/17/17 21:08 Total Protein 7.2 g/dL (6.4-8.2) 07/17/17 21:08 Albumin 4.0 g/dL (3.4-5.0) 07/17/17 21:08 Globulin 3.2 g/dL (2.5-4.5) 07/17/17 21:08 Albumin/Globulin Ratio 1.3 Ratio (1.1-2.1) 07/17/17 21:08 Influenza Type A (PCR) Negative (NEGATIVE) 07/17/17 21:08 Influenza Type B (PCR) Negative (NEGATIVE) 07/17/17 21:08 S. pyogenes (TEM-PCR) Detected (NOT DETECT) A 07/17/17 21:08 - XRAY XRAY Interpreted by: Radiologist XRAY Findings: REPORT DISCUSS WITH PATIENT. - Diagnosis Discharge Problem: Strep pharyngitis, Bronchitis, Gastroenteritis Sinusitis Qualifiers: Sinusitis location: unspecified location Chronicity: acute Recurrence: not specified as recurrent Qualified Code(s): J01.90 - Acute sinusitis, unspecified - Discharge Plan Disposition: 01 HOME, SELF-CARE Condition: Stable Prescriptions: Amoxicillin [Amoxil 875 mg] 875 mg PO Q12H #20 tab Cetirizine HCl [Zyrtec Tab 10 mg] 10 mg PO DAILY PRN #10 tab PRN Reason: Ibuprofen [MOTRIN TAB 600 MG *] 600 mg PO TID PRN #20 tab PRN Reason: Pain/Inflammation - Follow ups/Referrals Follow ups/Referrals: NFD,None [Primary Care Provider] - 3 days - Instructions Instructions: Viral Gastroenteritis, Adult, [id number], Sinusitis, Adult, [id number], Strep Throat, [id number] Additional Instructions: RETURN TO ED IF WORSE.
[2017-07-17 21:12] LABS: BASOPHILS # (AUTO) 0.1 X10^3/uL (0.0-0.1); BASOPHILS % (AUTO) 0.3 % (0.2-1.0); EOSINOPHILS # (AUTO) 0.5 x10^3/uL (0.0-0.2); EOSINOPHILS % (AUTO) 3.1 % (0.9-2.9); HEMATOCRIT 42.1 % (42.0-54.0); HEMOGLOBIN 14.2 g/dL (13.5-18.0); LYMPHOCYTES # (AUTO) 1.3 X10^3/uL (1.3-2.9); LYMPHOCYTES % (AUTO) 8.8 % (21.0-51.0); MEAN CORPUSCULAR HEMOGLOBIN 29.8 pg (27.0-34.0); MEAN CORPUSCULAR HGB CONC 33.8 g/dL (33.0-35.0); MEAN CORPUSCULAR VOLUME 88.3 fL (80.0-100.0); MEAN PLATELET VOLUME 8.3 fL (7.4-11.0); MONOCYTES # (AUTO) 0.9 x10^3/uL (0.3-0.8); NEUTROPHILS % (AUTO) 81.8 % (42.0-75.0); PLATELET COUNT 193 X10^3/uL (150.0-450.0); RED BLOOD COUNT 4.77 X10^6/uL (4.7-6.0); RED CELL DISTRIBUTION WIDTH 13.8 % (11.6-16.5); WHITE BLOOD COUNT 14.7 X10^3/uL (3.6-10.0)
[2017-07-17 21:29] LABS: ALANINE AMINOTRANSFERASE 29 Units/L (12-78); ALKALINE PHOSPHATASE 74 Units/L (46-116); ASPARTATE AMINO TRANSFERASE 18 Units/L (15-37); BLOOD UREA NITROGEN 16 mg/dL (7-18); CALCIUM 8.5 mg/dL (8.5-10.1); CHLORIDE 103 mmol/L (98-107); CREATININE 1.18 mg/dL (0.70-1.30); SODIUM 140 mmol/L (136-145); TOTAL PROTEIN 7.2 g/dL (6.4-8.2); eGFR BLACK RACES > 60 (>60); eGFR NON BLACK RACES > 60 (>60)
[2017-07-17] MEDS ORDERED: AMOXIL CAP 500 MG PO ONE ×2 (21:36→21:43)
[2017-07-17] MEDS ORDERED: ZyrTEC TAB 10 MG PO ONE (21:37)
[2017-07-17] MEDS ORDERED: TORADOL TAB PO ONE ×2 (21:39→21:42)
[2017-07-17] MEDS ORDERED: ZyrTEC TAB 10 MG ONE (21:43)
--- NOTE | 2017-07-17 21:46 | RAD ---
Acute abdominal series, four views Indication: Vomiting Comparison: Chest radiograph 08/16/2016 Findings: Heart size is normal. No focal consolidation, significant effusion or pneumothorax is ident ified. Moderate stool is present throughout the colon. The bowel gas pattern is otherwise nonobstructive. No free air or pneumatosis is identified. No pathologic calcifications are seen. Imaged osseous structu res are grossly intact. Impression: No acute cardiopulmonary abnormality. Constipation. Otherwise, no acute abdominal abnormality. Reported By:
== END 2017-07-17 22:10 | disposition home or self-care (01) ==
LOC: ER 20:32
DX: K52.89 Other specified noninfective gastroenteritis and colitis (principal); J40 Bronchitis, not specified as acute or chronic; J01.80 Other acute sinusitis; J02.0 Streptococcal pharyngitis
CPT/HCPCS: 36415; 74022; 80053; 85025; 87502; 87651; 99283; 99284